=== PATIENT | female | born 1965 | race Caucasian/White ===

== ENCOUNTER 2020-09-20 10:33 | Emergency (ER) | payer MEDICARE, MEDICAID ==
--- NOTE | 2020-09-20 11:26 | EDM.PDOC ---
ED HPI GENERAL MEDICAL PROBLEM - General Chief Complaint: Upper Extremity Injury/Pain Stated Complaint: BROKEN ARM??? Time Seen by Provider: 09/20/20 11:20 Source of Information: Reports: Family, RN Notes Reviewed History Limitations: Reports: Physical Impairment - History of Present Illness INITIAL COMMENTS - FREE TEXT/NARRATIVE: 54-year-old female from a developmental senior living presents to the emergency department today with possible fall at home and question of injury to her left forearm. She is severely developmentally delayed does not speak difficult to obtain any history from her. Staff members report she had possibly fallen did complain by screaming when her left forearm was touched - Related Data Allergies Allergy/AdvReac Type Severity Reaction Status Date / Time No Known Allergies Allergy Verified 09/20/20 10:44 Home Meds: Home Meds Acetaminophen 1,000 mg PO BEDTIME 09/20/20 [History] Cholecalciferol (Vitamin D3) [Vitamin D] 1,000 unit PO BID 09/20/20 [History] Citalopram Hydrobromide [Celexa] 40 mg PO DAILY 09/20/20 [History] Docusate Sodium [DOK] 200 mg PO BID 09/20/20 [History] Levocetirizine Dihydrochloride [24Hr Allergy Relief] 5 mg PO DAILY 09/20/20 [History] Levothyroxine Sodium [Levothyroxine] 88 mcg PO DAILY 09/20/20 [History] Linaclotide [Linzess] 290 mcg PO DAILY 09/20/20 [History] Mirtazapine 7.5 mg PO BEDTIME 09/20/20 [History] Multivit-Min/FA/Lycopen/Lutein [Certavite Sr-Antioxidant Tab] 1 tab PO DAILY 09/20/20 [History] Pantoprazole 20 mg PO DAILY 09/20/20 [History] Polyethylene Glycol 1000 [Polyethylene Glycol] 17 g PO DAILY 09/20/20 [History] Propranolol [Inderal LA] 120 mg PO DAILY 09/20/20 [History] QUEtiapine Fumarate [Quetiapine Fumarate] 400 mg PO BID 09/20/20 [History] carBAMazepine [Carbamazepine] 400 mg PO BID 09/20/20 [History] diphenhydrAMINE HCL [Banophen] 25 mg PO DAILY 09/20/20 [History] Past Medical History HEENT History: Reports: Impaired Vision Gastrointestinal History: Reports: GERD Musculoskeletal History: Reports: Osteoarthritis Neurological History: Reports: Cerebral Palsy, Seizure Psychiatric History: Reports: Anxiety Endocrine/Metabolic History: Reports: Osteoporosis Hematologic History: Reports: Anemia Social & Family History - Tobacco Use Tobacco Use Status *Q: Never Tobacco User - Caffeine Use Caffeine Use: Reports: None - Recreational Drug Use Recreational Drug Use: No Review of Systems - Review of Systems Review Of Systems: Unable To Obtain Reason Not Obtained: Elemental delay none verbal ED EXAM, GENERAL - Physical Exam Exam: See Below Free Text/Narrative:: Examination of the left forearm I was able to palpate completely I could not appreciate any deformity she tolerated this without difficulty made no adverse reactions radial pulses +2 skin is intact Exam Limited By: Physical Impairment Course - Vital Signs Last Recorded V/S: Last Vital Signs Temp 98.0 F 09/20/20 10:49 Pulse 88 09/20/20 10:49 Resp 16 09/20/20 10:49 BP 180/94 H 09/20/20 10:49 Pulse Ox 100 09/20/20 10:49 - Orders/Labs/Meds Orders: Active Orders 24 hr Category Date Time Status Forearm 2V Lt [CR] Stat Exams 09/20/20 11:23 Ordered Departure - Departure Time of Disposition: 12:22 Disposition: Home, Self-Care 01 Condition: Fair 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 Qualifiers: Ulna location: shaft Fracture type: closed Fracture morphology: other fracture Laterality: left Qualified Code(s): S52.292K - Other fracture of shaft of left ulna, subsequent encounter for closed fracture with nonunion - Discharge Information Instructions: Ulnar Fracture Referrals: PCP,None [Primary Care Provider] - Forms: ED Department Discharge Additional Instructions: Follow-up with primary care as needed Sepsis Event Note (ED) - Evaluation Sepsis Screening Result: No Definite Risk - Focused Exam Vital Signs: Vital Signs Temp Pulse Resp BP Pulse Ox 09/20/20 10:49 98.0 F 88 16 180/94 H 100 09/20/20 10:42 98.0 F 88 16 180/94 H 100 - My Orders Last 24 Hours: My Active Orders 09/20/20 11:23 Forearm 2V Lt [CR] Stat - Assessment/Plan Last 24 Hours: My Active Orders 09/20/20 11:23 Forearm 2V Lt [CR] Stat Plan: Assessment Acuity = chronic Site and laterality = nonunion ulnar fracture left side Etiology = unknown Manifestations = none Location of injury = Home Lab values = x-ray describes fracture above Plan Follow-up with primary care as needed This note was dictated using [employer] voice recognition software please call with any questions on syntax or grammar.
--- NOTE | 2020-09-20 12:47 | CR ---
Forearm 2V Lt CLINICAL HISTORY: Fall, pain FINDINGS: There is a previous fracture of the distal third of the ulna which appears to be nonunion. Radius appears intact. 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
== END 2020-09-20 12:49 | disposition home or self-care (01) ==
LOC: JP.ED 10:33
DX: S52.292K Other fracture of shaft of left ulna, subsequent encounter for closed fracture with nonunion (principal); K21.9 Gastro-esophageal reflux disease without esophagitis; F41.9 Anxiety disorder, unspecified; Z79.899 Other long term (current) drug therapy; X58.XXXA Exposure to other specified factors, initial encounter
CPT/HCPCS: 73090-26-LT; 73090-LT; 99284-25